=== PATIENT | female | born 1985 | race Caucasian/White ===

== ENCOUNTER 2024-08-26 20:25 | Emergency (ER) | payer SELFPAY ==
[2024-08-26 20:32] VITALS: BP 135/61; PULSE 89; RESP 18; TEMP 36.8; O2SAT 98; BMI 25.1
--- NOTE | 2024-08-26 20:37 | XR_ITS ---
PROCEDURE INFORMATION: Exam: XR Left Ankle Exam date and time: 08/26/2024 8:42 PM Age: 39 years old Clinical indication: Injury or trauma; Other: Tripped over dog; Other: Pain; Additional info: Left foot injury TECHNIQUE: Imaging protocol: Radiologic exam of the left ankle. Views: 1 or 2 views. COMPARISON: CR XR FOOT LT 2V 08/26/2024 8:41 PM FINDINGS: Bones/joints: Minimally displaced spiral fracture of the 5th metatarsal diaphysis. Soft tissues: Normal. IMPRESSION: Minimally displaced spiral fracture of the 5th metatarsal diaphysis.
--- NOTE | 2024-08-26 20:37 | XR_ITS ---
PROCEDURE INFORMATION: Exam: XR Left Foot Exam date and time: 08/26/2024 8:41 PM Age: 39 years old Clinical indication: Injury or trauma; Other: Tripped over dog; Other: Pain; Additional info: Left foot injury TECHNIQUE: Imaging protocol: Radiologic exam of the left foot. Views: 1 or 2 views. COMPARISON: No relevant prior studies available. FINDINGS: Bones/joints: Minimally displaced spiral fracture of the 5th metatarsal diaphysis. Soft tissues: Moderate soft tissue swelling at the fracture site. IMPRESSION: Minimally displaced spiral fracture of the 5th metatarsal diaphysis.
[2024-08-26 21:25] VITALS: BP 117/64; PULSE 94; RESP 16; O2SAT 98
--- NOTE | 2024-08-26 21:28 | PC.NURSE ---
Patient rounding done; no needs at this time.
[2024-08-26 21:30] VITALS: BP 111/66; PULSE 91; O2SAT 96
[2024-08-26 22:00] VITALS: BP 117/65; PULSE 89; O2SAT 96
--- NOTE | 2024-08-26 22:02 | PC.NURSE ---
Rounding complete; patient has no needs at this time
--- NOTE | 2024-08-26 22:22 | [facility].EDGENADL ---
Discharge Plan Disposition Patient Disposition: Home, Self-Care Chief Complaint: Extremity Injury, Lower Prescriptions Prescriptions: No Action No Known Home Medications Referrals Follow up/Referrals: Provider,Referral, [Primary Care Provider] - See instructions Yair Coelho DO [Staff Physician] - See instructions Activity Restrictions/Add. Instructions Additional Instructions/Restrictions: Follow-up with Dr. Coelho regarding this visit to the emergency department. Walking boot at all times. Call your family doctor to establish care for this visit to the emergency department and schedule follow-up within 48 hours to ensure improvement. If you have any worsening of your condition or any other concerning signs or symptoms, return to the emergency department or your primary care doctor for further evaluation. Clinical Impressions Clinical Impression: Fracture of fifth metatarsal bone Print Language Print Language: Omani Discharge ED Provider: Yaya Miller General Adult HPI General Chief complaint: Extremity Injury, Lower Stated complaint: [id number]@1930 fall LT foot inj Time Seen by Provider: 08/26/24 22:19 Mode of Arrival: Ambulatory Source of Information: Patient Limitations: No Limitations Description of Symptoms (Recalled from ER Triage Doc. by RN): Pt tripped over dog this evening and landed on her foot wrong Pt now having pain in her foot. rates pain a 6/10 History of Present Illness HPI narrative: Please note that above description of symptoms, in this electronic medical record under categorization of recalled from ER triage doctor by RN are reflective of an initial nursing assessment, however, is not reflective of my full history and physical exam that was personally taken and clarified. Consequentially, this preceding description of symptoms, which may include the patient's categorized chief complaint in the EMR, do not reflect my personal clinical impression, and the ultimate description of history of present illness and patient stated complaints should be deferred to this section of the note. Unless stated otherwise or congruent with this section of the note, additional signs, symptoms, or incongruence should be interpreted as inaccurate with my clinical impression. Related Data Home Medications ?Medication ?Instructions ?Recorded ?Confirmed No Known Home Medications 08/26/24 08/26/24 Allergies Allergy/AdvReac Type Severity Reaction Status Date / Time No Known Allergies Allergy Verified 07/28/19 18:20 [facility] [place] Disclaimer: The information contained in this section may have been updated after the patient was seen, as this information can be updated by other users. Social History Smoking Status: Never smoker alcohol intake: never current occupational status: other Travel in the last 8 weeks: None Have you lived/traveled outside [place] in past 30 days?: No Contact w/someone who lives/traveled outside [place] past 30 days?: No Exposure to someone with infectious disease in past 14 days?: No Do you have a fever (greater than 100.4 F or 38 C)?: No Have you tested positive for COVID-19: No Exposed to someone with COVID-19 in past 14 days?: No Do you have a sore throat?: No Do you have a cough?: No Do you have any weakness?: No Do you have any diarrhea?: No Are you experiencing any unusual bleeding?: No Do you have any muscle aches/pain?: No Do you have any abdominal pain?: No Are you experiencing loss of taste or smell?: No ROS Obtained: Yes All systems reviewed & no additional complaints except as documented Physical Exam General General appearance: alert Head Head exam: atraumatic and normocephalic Eye Eye exam: Present normal appearance, PERRL and EOMI Neck Neck exam: Present normal inspection, full ROM and trachea midline Respiratory Respiratory exam: Absent respiratory distress, wheezes, stridor, accessory muscle use or prolonged expiratory phase Cardiovascular Cardiovascular exam: Present other (Pulses equal symmetric in upper and lower extremities) Abdominal Exam Abdominal exam: Present soft; Absent distention, tenderness or pulsatile mass Extremities Exam Extremities exam: Absent edema Neurological Exam Neurological exam: Present alert, oriented X3 and CN II-XII intact; Absent motor sensory deficit Skin Skin exam: Present warm and dry; Absent diaphoresis or erythema Medical Decision Making Medical Records Medical records reviewed: Yes I reviewed the patient's medical records. Screening: Per USPSTF and CDC recommendations, given the prevalence of disease in our region, it is our hospital?s policy to screen for HIV and viral Hepatitis for all patients aged 18 and over and those with ongoing risk factors. Godfrey Inquiry Pt receiving controlled substance: No Godfrey was queried for this patient: No Vital Signs: 08/26/24 20:32 08/26/24 21:25 08/26/24 21:30 Temperature 98.3 F Temperature Source Oral Pulse Rate 94 H 91 H Pulse Rate [Right] 89 Respiratory Rate 18 16 Blood Pressure 117/64 111/66 Blood Pressure [Right Arm] 135/61 Blood Pressure Mean [Right Arm] 85 Blood Pressure Source Automatic Cuff Blood Pressure Source [Right Arm] Automatic Cuff Blood Pressure Position Supine Blood Pressure Position [Right Arm] Sitting 02 Sat by Pulse Oximetry 98 98 96 Oxygen Delivery Method Room Air Room Air 08/26/24 22:00 Temperature Temperature Source Pulse Rate 89 Pulse Rate [Right] Respiratory Rate Blood Pressure 117/65 Blood Pressure [Right Arm] Blood Pressure Mean [Right Arm] Blood Pressure Source Blood Pressure Source [Right Arm] Blood Pressure Position Blood Pressure Position [Right Arm] 02 Sat by Pulse Oximetry 96 Oxygen Delivery Method Orders (Tests/Meds): ORDERS Category Date Time Status Ankle XR - Left 2 Views [XR ankle LT 2V] Stat Exams 08/26/24 20:37 Completed XR foot LT 2V Stat Exams 08/26/24 20:37 Completed Medical Decision Narrative: 39-year-old female presenting with left foot injury. States that she tripped over her dog and her foot inverted and popped. Had immediate pain. Swelling. Took Tylenol and Motrin and came to the emergency department. History obtained with patient. On physical exam very clinically well, does not appear to be in acute pain or distress. Left side of her foot and ankle are swollen. Primarily over fifth metatarsal. Neurovascularly intact. Range of motion intact. Differential includes sprain, strain, fracture, dislocation, among others. X-rays obtained, patient given Tylenol and Motrin just prior to arrival. Independent interpretation of patient's x-rays with fracture of fifth metatarsal. I contacted orthopedics and consulted them, recommended walking boot and follow-up. Walking boot was placed. Patient requires orthopedic bracing due to weakness or deformity requiring stabilization. The use of this brace will benefit the patient's functionality and prevent further injury. Because patient at baseline without signs or symptoms of clinical decompensation, deemed appropriate for discharge. Results were relayed to patient who voiced understanding and were agreeable to outpatient management and follow up. I discussed my clinical impression with patient and answered all questions. At this time, the evidence for any other entities in the differential is insufficient to warrant any further testing or ED observation. This was explained as well. Advisory was given that persistent or worsening symptoms require further evaluation. I confirmed the understanding of this discussion. Postal Clerk disclaimer Much of this encounter note is an electronic voice network administrator spoken language to printed text. Electronic voice network administrator of the spoken language may permit errors. Although I have reviewed the note, some errors may still exist. Critical Care Critical Care Time Critical Care Time: No
[2024-08-26 22:31] VITALS: BP 128/78; PULSE 74; RESP 16; TEMP 36.6; O2SAT 98
== END 2024-08-26 22:32 | disposition home or self-care (01) ==
PROVIDERS: Emergency Provider Emergency Medicine
DX: S92.352A Displaced fracture of fifth metatarsal bone, left foot, initial encounter for closed fracture (principal); M79.672 Pain in left foot; W01.0XXA Fall on same level from slipping, tripping and stumbling without subsequent striking against object, initial encounter; Y93.89 Activity, other specified; Y92.9 Unspecified place or not applicable
CPT/HCPCS: 73600; 73620; 99283